=== PATIENT | female | born 1985 | race Caucasian/White ===

== ENCOUNTER 2017-05-31 06:17 | Inpatient (IN) ==
[2017-05-31] MEDS ORDERED: BUTORPHANOL 2 MG/ML VIAL IV PRN (06:33)
[2017-05-31] MEDS ORDERED: ONDANSETRON 4 MG/2 ML VIAL IV PRN ×2 (06:33→19:45)
[2017-05-31] MEDS ORDERED: LACTATED RINGERS 1,000 ML IV SCH (07:00)
[2017-05-31] MEDS ORDERED: OXYTOCIN/LR 20 UNIT/1,000 ML BAG IV SCH (07:00)
[2017-05-31 07:13] LABS: Basophils # 0.1 10*3/uL (0.0-0.2); Basophils % 0.5 % (0.0-0.8); Eosinophils # 0.5 10*3/uL (0.0-0.87); Eosinophils % 4.3 % (0.00-10.9); Hematocrit 30.9 VOL% (35.7-47.0); Hemoglobin 10.4 GM/DL (12.0-16.0); Immature Granulocytes % 1.3 %; Immature Granulocytes Absolute 0.15 #; Lymphocytes # 2.7 10*3/uL (1.4-4.0); Lymphocytes % 23.4 % (21.3-54.2); Mean Corpuscular HGB Conc 33.7 GM/DL (32-36); Mean Corpuscular Hemoglobin 28 PG (27-34); Mean Corpuscular Volume 83.1 FL (87-102); Mean Platelet Volume 11.6 FL (9.6-12.0); Monocytes # 1.3 10*3/uL (0.11-0.8); Monocytes % 11.3 % (1.7-12.7); Neutrophils # 6.9 10*3/uL (1.4-7.4); Neutrophils % 59.2 % (38.7-73.9); Platelet Count 221 T/CUMM (130-400); Red Blood Count 3.72 MC/CUMM (3.8-5.5); Red Cell Distribution Width 13.4 % (9.3-17.3); White Blood Count 11.6 T/CUMM (4-12)
[2017-05-31] MEDS: CLINDAMYCIN INJ 900 MG in PREMIX 1 EACH IV SCH ×2 (07:37→14:06)
[2017-05-31] MEDS ORDERED: diphenhydrAMINE 50 MG/1 ML VIAL IV PRN (12:39)
[2017-05-31] MEDS ORDERED: ePHEDrine 50 MG/ML AMP IV PRN (12:39)
[2017-05-31] MEDS ORDERED: FAMOTIDINE 20 MG/2 ML VIAL IV ONE (12:39)
[2017-05-31] MEDS ORDERED: PROMETHAZINE 25 MG/1 ML VIAL IM ONE (12:39)
[2017-05-31] MEDS ORDERED: hydrOXYzine HCL 25 MG/1 ML VIAL IM PRN (12:39)
[2017-05-31] MEDS ORDERED: CITRIC ACID/SODIUM CITRATE 30 ML UDCUP ONE (12:40)
[2017-05-31] MEDS ORDERED: fentaNYL 2 MCG/ROPIV 0.2% EPID 150 ML EPIDURAL ONE (12:40)
[2017-05-31] MEDS ORDERED: CITRIC ACID/SODIUM CITRATE 30 ML UDCUP PO ONE (12:40)
[2017-05-31] MEDS ORDERED: fentaNYL 2 MCG/ROPIV 0.2% EPID 150 ML EPIDURAL SCH (13:00)
[2017-05-31 16:21] LABS: Apearance,Urine CLEAR (Clear); Bacteria,Urine Occasional /HPF (Few); Bilirubin,Urine Negative (Negative); Blood, Urine Negative (Negative); Glucose,Urine (UA) Negative (Negative); Ketones,Urine 20 mg/dL (Negative); Mucus,Urine Occasional /LPF (Occasional); Nitrite,Urine Negative (Negative); Protein,Urine Negative; RBC,Urine 1 /HPF (0-4); Squamous Epithelial Cell,Urine Occasional /HPF (0-10); Urine Color Yellow (Yellow); Urine Urobilinogen < 2.0 EU/DL (0.2-1.0); WBC,Urine 1 /HPF (0-6)
[2017-05-31] MEDS ORDERED: miSOPROStol 200 MCG TABLET ONE (19:01)
[2017-05-31] MEDS ORDERED: LIDOCAINE 1% 50 ML VIAL ONE (19:01)
[2017-05-31] MEDS ORDERED: METHYLERGONOVINE 0.2 MG/1 ML AMP ONE (19:26)
[2017-05-31] MEDS ORDERED: METHYLERGONOVINE 0.2 MG/1 ML AMP IM ONE (19:30)
[2017-05-31] MEDS ORDERED: LANOLIN 50% CREAM 0.3 OZ TUBE TOP PRN (19:45)
[2017-05-31] MEDS ORDERED: MEASLES/MUMPS/RUBELLA VACCINE 0.5 ML VIAL SUBCUT ONE (19:45)
[2017-05-31] MEDS ORDERED: oxyCODONE/ACETAMINOPHEN 5-325 MG TABLET PO PRN ×2 (19:45)
[2017-05-31] MEDS ORDERED: BENZOCAINE 20%/MENTHOL 0.5% SPRAY 56 GM CAN TOP PRN (19:45)
[2017-05-31] MEDS ORDERED: RHO(D) IMMUNE GLOBULIN 300 MCG SYRINGE IM ONE (19:45)
[2017-05-31] MEDS ORDERED: BISACODYL 10 MG SUPP RECTAL PRN (19:45)
[2017-05-31] MEDS ORDERED: HYDROCORTISONE 2.5% RECTAL CREAM 30 GM TUBE TOP PRN (19:45)
[2017-05-31] MEDS ORDERED: OXYTOCIN/LR 20 UNIT/1,000 ML BAG IV ONE (19:45)
[2017-05-31] MEDS ORDERED: DIPH/TET/ACEL PERT BOOSTER VACCINE 0.5 ML VIAL IM ONE (19:45)
[2017-05-31] MEDS ORDERED: ACETAMINOPHEN 325 MG TABLET PO PRN (19:45)
[2017-05-31] MEDS ORDERED: WITCH HAZEL PADS 100/JAR TOP PRN (19:45)
[2017-06-01] MEDS: IBUPROFEN 800 MG TABLET PO PRN ×2 (04:15→16:47)
[2017-06-01 06:23] LABS: Basophils % 0.2 % (0.0-0.8); Eosinophils # 0.1 10*3/uL (0.0-0.87); Eosinophils % 0.7 % (0.00-10.9); Hematocrit 28.7 VOL% (35.7-47.0); Hemoglobin 9.6 GM/DL (12.0-16.0); Immature Granulocytes % 0.8 %; Immature Granulocytes Absolute 0.15 #; Lymphocytes # 2.2 10*3/uL (1.4-4.0); Lymphocytes % 10.9 % (21.3-54.2); Mean Corpuscular HGB Conc 33.4 GM/DL (32-36); Mean Corpuscular Hemoglobin 28 PG (27-34); Mean Corpuscular Volume 83.7 FL (87-102); Mean Platelet Volume 11.6 FL (9.6-12.0); Monocytes # 1.9 10*3/uL (0.11-0.8); Monocytes % 9.8 % (1.7-12.7); Neutrophils # 15.3 10*3/uL (1.4-7.4); Neutrophils % 77.6 % (38.7-73.9); Platelet Count 201 T/CUMM (130-400); Red Blood Count 3.43 MC/CUMM (3.8-5.5); Red Cell Distribution Width 13.5 % (9.3-17.3); White Blood Count 19.8 T/CUMM (4-12)
[2017-06-01] MEDS: DOCUSATE SODIUM 100 MG CAPSULE PO SCH ×2 (09:16→20:55)
[2017-06-01] MEDS ORDERED: ONDANSETRON 4 MG TABLET PO PRN (11:54)
[2017-06-02] MEDS: IBUPROFEN 800 MG TABLET PO PRN ×2 (00:20→05:56)
[2017-06-02 07:26] VITALS: BP 104/60
[2017-06-02] MEDS: DOCUSATE SODIUM 100 MG CAPSULE PO SCH (09:33)
== END 2017-06-02 12:25 | disposition home or self-care (01) | DRG 767 ==
LOC: N.LDOUT 06:17 → N.LD 06:22 → N.OB 22:08
PROVIDERS: ADMIT Obstetrics & Gynecology; ATTEND Obstetrics & Gynecology

== ENCOUNTER 2019-04-05 10:52 | Inpatient (IN) ==
[2019-04-05] MEDS ORDERED: BUTORPHANOL 2 MG/ML VIAL IV PRN (11:42)
[2019-04-05] MEDS ORDERED: ONDANSETRON 4 MG/2 ML VIAL IV PRN ×2 (11:42→22:25)
[2019-04-05] MEDS ORDERED: MEPERIDINE 50 MG/1 ML VIAL IV PRN (11:42)
[2019-04-05] MEDS: LACTATED RINGERS 1,000 ML IV SCH ×3 (12:00→19:09)
[2019-04-05] MEDS ORDERED: OXYTOCIN/LR 20 UNIT/1,000 ML BAG IV SCH (12:00)
[2019-04-05] MEDS ORDERED: VANCOMYCIN INJ 1,000 MG in SODIUM CHLORIDE 0.9% 250 ML IV SCH (12:00)
[2019-04-05 12:05] LABS: Basophils % 0.3 % (0.0-0.8); Eosinophils # 0.2 10*3/uL (0.0-0.87); Eosinophils % 1.8 % (0.00-10.9); Hematocrit 31.9 VOL% (35.7-47.0); Hemoglobin 10.4 GM/DL (12.0-16.0); Immature Granulocytes % 1.4 %; Immature Granulocytes Absolute 0.16 #; Lymphocytes # 2.2 10*3/uL (1.4-4.0); Lymphocytes % 19.6 % (21.3-54.2); Mean Corpuscular HGB Conc 32.6 GM/DL (32-36); Mean Corpuscular Volume 83.1 FL (87-102); Monocytes % 8.8 % (1.7-12.7); Neutrophils % 68.1 % (38.7-73.9); Platelet Count 177 T/CUMM (130-400); Red Blood Count 3.84 MC/CUMM (3.8-5.5); Red Cell Distribution Width 13.2 % (9.3-17.3); White Blood Count 11.1 T/CUMM (4-12)
[2019-04-05] MEDS: VANCOMYCIN INJ 500 MG in SODIUM CHLORIDE 0.9% 100 ML IV ONE ×2 (12:48→12:55)
[2019-04-05] MEDS ORDERED: NALOXONE 0.4 MG/ML VIAL IV PRN (14:32)
[2019-04-05] MEDS ORDERED: ePHEDrine 50 MG/ML AMP IV PRN (14:32)
[2019-04-05] MEDS ORDERED: diphenhydrAMINE 50 MG/1 ML VIAL IV PRN ×2 (14:32)
[2019-04-05] MEDS ORDERED: PROMETHAZINE 25 MG/1 ML VIAL IM ONE (14:32)
[2019-04-05] MEDS ORDERED: FAMOTIDINE 20 MG/2 ML VIAL IV ONE (14:32)
[2019-04-05] MEDS ORDERED: CITRIC ACID/SODIUM CITRATE 30 ML UDCUP PO ONE (14:32)
[2019-04-05] MEDS ORDERED: hydrOXYzine HCL 25 MG/1 ML VIAL IM PRN (14:32)
[2019-04-05] MEDS ORDERED: VANCOMYCIN INJ 500 MG in SODIUM CHLORIDE 0.9% 100 ML IV ONE (15:45)
[2019-04-05 19:02] LABS: Calcium 8.3 MG/DL (8.5-10.1); Osmolality,Calculated 270.7 MOS/KG (273-304)
[2019-04-05] MEDS ORDERED: fentaNYL 100 MCG/2 ML VIAL ONE ×2 (19:16→21:35)
[2019-04-05] MEDS ORDERED: LIDOCAINE 1% 50 ML VIAL ONE (20:08)
[2019-04-05] MEDS ORDERED: TRANEXAMIC ACID 1,000 MG/10 ML VIAL ONE (20:09)
[2019-04-05] MEDS ORDERED: miSOPROStoL 200 MCG TABLET ONE (20:09)
[2019-04-05] MEDS ORDERED: METHYLERGONOVINE 0.2 MG/1 ML AMP ONE (20:10)
[2019-04-05] MEDS ORDERED: CARBOPROST TROMETHAMINE 250 MCG/ML AMP IM ONE (20:10)
[2019-04-05] MEDS ORDERED: LIDOCAINE MPF 2% /EPI 20 ML VIAL ONE (21:06)
[2019-04-05] MEDS: fentaNYL 2 MCG/ROPIV 0.2% EPID 100 ML EPIDURAL SCH (21:49)
[2019-04-05] MEDS ORDERED: oxyCODONE/ACETAMINOPHEN 5-325 MG TABLET PO PRN ×2 (22:25)
[2019-04-05] MEDS ORDERED: DIPH/TET/ACEL PERT BOOSTER VACCINE 0.5 ML VIAL IM ONE (22:25)
[2019-04-05] MEDS ORDERED: MEASLES/MUMPS/RUBELLA VACCINE 0.5 ML VIAL SUBCUT ONE (22:25)
[2019-04-05] MEDS ORDERED: BENZOCAINE 20%/MENTHOL 0.5% SPRAY 56 GM CAN TOP PRN (22:25)
[2019-04-05] MEDS ORDERED: RHO(D) IMMUNE GLOBULIN 300 MCG SYRINGE IM ONE (22:25)
[2019-04-05] MEDS ORDERED: ACETAMINOPHEN 325 MG TABLET PO PRN (22:25)
[2019-04-05] MEDS ORDERED: LANOLIN 50% CREAM 0.3 OZ TUBE TOP PRN (22:25)
[2019-04-05] MEDS ORDERED: WITCH HAZEL PADS 100/JAR TOP PRN (22:25)
[2019-04-05] MEDS ORDERED: BISACODYL 10 MG SUPP RECTAL PRN (22:25)
[2019-04-05] MEDS ORDERED: OXYTOCIN/LR 20 UNIT/1,000 ML BAG IV ONE (22:25)
[2019-04-05] MEDS ORDERED: HYDROCORTISONE 2.5% RECTAL CREAM 30 GM TUBE TOP PRN (22:25)
[2019-04-06] MEDS ORDERED: VANCOMYCIN INJ 1,250 MG in SODIUM CHLORIDE 0.9% 250 ML IV SCH
[2019-04-06] MEDS: fentaNYL 2 MCG/ROPIV 0.2% EPID 100 ML EPIDURAL SCH (02:46)
[2019-04-06] MEDS ORDERED: VANCOMYCIN INJ 1,000 MG in SODIUM CHLORIDE 0.9% 250 ML IV SCH (04:00)
[2019-04-06 05:52] LABS: Basophils % 0.2 % (0.0-0.8); Eosinophils % 0.3 % (0.00-10.9); Hematocrit 31.5 VOL% (35.7-47.0); Hemoglobin 10.3 GM/DL (12.0-16.0); Immature Granulocytes % 1.3 %; Immature Granulocytes Absolute 0.19 #; Lymphocytes # 1.6 10*3/uL (1.4-4.0); Lymphocytes % 10.2 % (21.3-54.2); Mean Corpuscular HGB Conc 32.7 GM/DL (32-36); Mean Corpuscular Volume 82.9 FL (87-102); Mean Platelet Volume 11.2 FL (9.6-12.0); Platelet Count 193 T/CUMM (130-400); Red Cell Distribution Width 13.2 % (9.3-17.3); White Blood Count 15.2 T/CUMM (4-12)
[2019-04-06] MEDS: IBUPROFEN 800 MG TABLET PO PRN ×2 (09:25→18:37)
[2019-04-06] MEDS: DOCUSATE SODIUM 100 MG CAPSULE PO SCH ×2 (09:27→21:47)
[2019-04-07 07:40] VITALS: BP 113/69
[2019-04-07] MEDS: DOCUSATE SODIUM 100 MG CAPSULE PO SCH (10:16)
== END 2019-04-07 12:15 | disposition home or self-care (01) | DRG 807 ==
LOC: N.LDOUT 10:52 → N.LD 10:55 → N.OB 04-06 01:59
PROVIDERS: ADMIT Obstetrics & Gynecology; ATTEND Obstetrics & Gynecology